=== PATIENT | male | born 1990 | race Two or more races ===

== ENCOUNTER 2016-11-11 05:47 | Emergency (ER) | payer BC ==
[~2016-11-11] VITALS: Ht 167.6 cm; Wt 82.1 kg
[2016-11-11] MEDS ORDERED: NKM (05:59)
[2016-11-11] MEDS ORDERED: ALBUTEROL SULF8.5 GM INH (06:13)
--- NOTE | 2016-11-11 06:13 | Emergency Room Report ---
History of Present Illness General Chief Complaint: Dyspnea/Respdistress Source: Patient Present Illness HPI This is a 26-year-old male with no past medical history he woke up with chief complaint of shortness of breath. He said he woke up fine and internal walked to the bathroom and fell and couldn't breathe. Lasted for about few minutes. Now is normal. Back to baseline. Something happened 3 years ago he went to the hospital. Workup was negative. nothing made better and nothing made it worse. No history of asthma. No cough or congestion. No URI symptoms. Allergies: Coded Allergies: No Known Allergies (Unverified , 11/11/16) Patient History Past Medical History: none, see triage record, old chart reviewed Past Surgical History: none Pertinent Family History: none Social History: Reports: smoking Immunizations: other Reviewed Nursing Documentation: PMH: Agreed, PSxH: Agreed Nursing Documentation-PMH Past Medical History: No Stated History Review of Systems Eye: Denies: eye pain, blurred vision ENT: Denies: ear pain, nose congestion, throat swelling Respiratory: Reports: shortness of breath, Denies: cough Cardiovascular: Denies: chest pain, palpitations Gastrointestinal: Denies: abdominal pain, diarrhea, nausea, vomiting Musculoskeletal: Denies: back pain, joint pain Skin: Denies: rash Neurological: Denies: headache, numbness Endocrine: Denies: increased thirst, increased urine Hematologic/Lymphatic: Denies: easy bruising All Other Systems: negative except mentioned in HPI Physical Exam Vital Signs Date Time Temp Pulse Resp B/P (MAP) Pulse Ox O2 Delivery O2 Flow Rate FiO2 11/11/16 05:51 97.9 69 16 125/80 99 Room Air vitals normal Sp02 EP Interpretation: reviewed, normal General Appearance: well appearing, no apparent distress, alert Head: normocephalic, atraumatic Eyes: bilateral eye PERRL, bilateral eye EOMI ENT: hearing grossly normal, normal pharynx Neck: full range of motion, supple, no meningismus Respiratory: chest non-tender, lungs clear, normal breath sounds Cardiovascular #1: regular rate, rhythm, no murmur Gastrointestinal: normal bowel sounds, non tender, no mass, no organomegaly, no bruit, non-distended Musculoskeletal: back normal, gait/station normal, normal range of motion Psychiatric: mood/affect normal Skin: warm/dry Medical Decision Making Diagnostic Impression: Primary Impression: Dyspnea Qualified Codes: R06.00 - Dyspnea, unspecified ER Course patient with dyspnea that resolved. No evidence of ACS, PE, dissection to name a few. Last Vital Signs Date Time Temp Pulse Resp B/P (MAP) Pulse Ox O2 Delivery O2 Flow Rate FiO2 11/11/16 06:06 69 16 Room Air 11/11/16 05:51 97.9 125/80 99 Status: unchanged Disposition: HOME, SELF-CARE Condition: Stable Scripts Albuterol Sulfate* (ALBUTEROL SULFATE MDI*) 8.5 Gm Hfa.aer.ad 2 PUFF INH Q4H Y for cough/wheezing, #1 EA 0 Refills Prov: MARK CANDELARIO M.D. 11/11/16 Patient Instructions: Shortness of Breath, [id number] Additional Instructions: Followup with your DrVero in 7 days. Return if worse. MARK CANDELARIO M.D. Nov 11, 2016 06:13
[2016-11-11 06:18] VITALS: BP 125/80
== END 2016-11-11 06:50 | disposition home or self-care (01) ==
LOC: EMR 06:05
DX: R06.00 Dyspnea, unspecified (principal); F17.200 Nicotine dependence, unspecified, uncomplicated
CPT/HCPCS: 99283

== ENCOUNTER 2017-12-08 10:14 | Emergency (ER) | payer BC, OTHER ==
[~2017-12-08] VITALS: Ht 172.7 cm; Wt 77.1 kg
[~2017-12-08 10:14] MED LIST: ALBUTEROL SULF8.5 GM INH; NKM
[2017-12-08 10:25] VITALS: BP 123/75
--- NOTE | 2017-12-08 10:51 | Emergency Room Report ---
History of Present Illness General Chief Complaint: Flu Like Symptoms Source: Patient Present Illness HPI Patient with 3 days of upper respiratory symptoms with cough that's nonproductive. Denies any sore throat. He has pain in the right side of his neck that radiates up into his head causing tingling there. It's having difficulty sleeping because of the symptoms. Pain rated 5/10, aching and tingling. No nausea vomiting diarrhea. The patient had a flu shot 2 weeks ago. No rashes, runny nose, joint pain, NVD. 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[employer] Reviewed Nursing Documentation: PMH: Agreed; PSxH: Agreed Nursing Documentation-PM Past Medical History: No Stated History Review of Systems All Other Systems: negative except mentioned in HPI Physical Exam Vital Signs Date Time Temp Pulse Resp B/P (MAP) Pulse Ox O2 Delivery O2 Flow Rate FiO2 12/08/17 10:18 99.1 82 18 120/79 98 Room Air 99.1 General Appearance: well appearing, no apparent distress Head: normocephalic, atraumatic ENT: hearing grossly normal, normal voice, pharyngeal erythema Neck: full range of motion, supple, tender lateral - R sided Respiratory: lungs clear, normal breath sounds, no respiratory distress, speaking full sentences Cardiovascular #1: regular rate, rhythm Cardiovascular #2: 2+ radial (L) Gastrointestinal: normal inspection, normal bowel sounds, scaphoid Musculoskeletal: back normal, digits/nails normal, gait/station normal, normal range of motion Neurologic: alert, normal gait Psychiatric: mood/affect normal Skin: no rash Medical Decision Making Diagnostic Impression: Primary Impression: Bronchitis Additional Impression: Neck pain ER Course Patient presents with cough headache and neck pain. Differential includes influenza, viral syndrome, bronchitis or of other source. I discussed symptomatic treatment with the patient and he is concerned that he has influenza. An influenza swab is being sent. The patient is given Tylenol. Influenza neg. Patient improved with treatment and plan discussed. Patient stable for outpatient observation and treatment. Last Vital Signs Date Time Temp Pulse Resp B/P (MAP) Pulse Ox O2 Delivery O2 Flow Rate FiO2 12/08/17 12:43 99.1 78 18 123/75 98 Room Air 210.4 Status: improved Disposition: HOME, SELF-CARE Condition: Improved Scripts Acetaminophen (Tylenol) 325 Mg Tablet 650 MG ORAL Q6H PRN for Prn Pain/Headache/Temp > 101, #20 TAB 0 Refills Prov: Camron Snyder M.D. 12/08/17 Ibuprofen* (MOTRIN*) 600 Mg Tablet 600 MG ORAL Q6H PRN for For Pain, #20 TAB Prov: Camron Snyder M.D. 12/08/17 Guaifenesin/Codeine Phos* (ROBITUSSIN AC*) 118 Ml Liquid 5 ML ORAL Q6H PRN for For Cough, #90 ML 0 Refills Prov: Camron Snyder M.D. 12/08/17 Albuterol Sulfate* (ALBUTEROL SULFATE MDI*) 8.5 Gm Hfa.aer.ad 2 PUFF INH Q6H, #1 EA 0 Refills Prov: Camron Snyder M.D. 12/08/17 Camron Snyder M.D. Dec 08, 2017 10:51
[2017-12-08] MEDS ORDERED: TYLENOL325 MG ORAL (12:36)
[2017-12-08] MEDS ORDERED: ALBUTEROL SULF8.5 GM INH (12:36)
[2017-12-08] MEDS ORDERED: IBUPROFEN600 MG ORAL (12:36)
[2017-12-08] MEDS ORDERED: GUAIFENESIN-CO118 M1 ORAL (12:36)
[2017-12-08 12:43] VITALS: BP 123/75
== END 2017-12-08 12:43 | disposition home or self-care (01) ==
LOC: EMR 10:45
DX: J40 Bronchitis, not specified as acute or chronic (principal); M54.2 Cervicalgia
CPT/HCPCS: 86710; 99283